=== PATIENT | female | born 1960 | race Caucasian/White ===

== ENCOUNTER 2021-10-24 12:47 | Emergency (ER) | payer OTHER ==
[2021-10-24 13:53] LABS: HEMOGLOBIN 13.2 gm/dl (12.3-15.3); RED BLOOD COUNT 4.38 M/UL (4.00-5.10); WHITE BLOOD COUNT 6.7 K/UL (4.5-11.0)
[2021-10-24 14:12] LABS: BUN/CREATININE RATIO 35 (0-10)
[2021-10-24] MEDS ORDERED: OMNICEF 300 MG300 MG PO (14:53)
== END 2021-10-24 15:20 | disposition home or self-care (01) ==
LOC: ER1 12:47
PROVIDERS: Student in an Organized Health Care Education/Training Program
DX: S30.816A Abrasion of unspecified external genital organs, female, initial encounter (principal); N81.10 Cystocele, unspecified; N39.0 Urinary tract infection, site not specified; I10 Essential (primary) hypertension; X58.XXXA Exposure to other specified factors, initial encounter
CPT/HCPCS: 80048; 81001; 85025; 99283

== ENCOUNTER → 2022-01-06 | Outpatient (CLI) | payer OTHER ==
[~2022-01-06] MED LIST: ATENOLOL50 MG PO; EC-NAPROXEN500 MG PO; ESTRADIOL42.5 GM VG; HYDROCODON-ACE1 EAC2 PO; LASIX TAB 20 MG20 MG PO; LEVOTHYROXINE125 MCG PO; MIRALAX 119 GR119 GM PO; NORVASC10 MG PO; OMNICEF 300 MG300 MG PO; POTASSIUM CHLO10 ME1 PO; VASOTEC20 MG PO; VITAMIN A10000 UNI1 PO; VITAMIN D310 MC4 PO; VITAMIN E90 M1 PO; ZINC50 M1 PO; ZOFRAN 4 MG TAB4 MG PO
[2022-01-06 13:37] LABS: HEMOGLOBIN 13.5 gm/dl (12.3-15.3); RED BLOOD COUNT 4.46 M/UL (4.00-5.10); WHITE BLOOD COUNT 6.6 K/UL (4.5-11.0)
[2022-01-06 13:57] LABS: BUN/CREATININE RATIO 26 (0-10)
== END ==
LOC: OPSV2 12:30
PROVIDERS: Obstetrics & Gynecology
DX: Z01.818 Encounter for other preprocedural examination (principal); N81.10 Cystocele, unspecified
CPT/HCPCS: 36415; 71046; 80053; 81001; 85025; 93005

== ENCOUNTER 2022-01-13 05:22 | Inpatient (IN) | payer OTHER ==
[~2022-01-13] VITALS: Ht 172.7 cm; Wt 99.3 kg
[~2022-01-13 05:22] MED LIST changes: -EC-NAPROXEN500 MG PO; -HYDROCODON-ACE1 EAC2 PO; -MIRALAX 119 GR119 GM PO; -ZOFRAN 4 MG TAB4 MG PO
[2022-01-13] MEDS ORDERED: HYDROCODON-ACE1 EAC2 PO (13:15)
[2022-01-13] MEDS ORDERED: EC-NAPROXEN500 MG PO (13:15)
[2022-01-13] MEDS ORDERED: ZOFRAN 4 MG TAB4 MG PO (13:15)
[2022-01-13] MEDS ORDERED: MIRALAX 119 GR119 GM PO (13:19)
--- NOTE | 2022-01-13 17:20 | NUR ---
b scuds placed when pt arrived to unit
--- NOTE | 2022-01-14 03:47 | NUR ---
Late Entry 01/13/221929 Pt resting in bed, low fowlers, drowsy from anesthesia, a&o x 3. o2 removed, sats 96%. Skin warm & dry, pedal pulses present bilat. skin turgor wnl. adb dressing to lower abd intact. resperations clear, easy & unlabored, i/s use done up tp 500 ml inspired volume, no cough present, he regular and currently 62. 1+ pitting edema to ble, knee high scuds inplace. fc patent, anchored to bedside, draining red tinged urine, secuted to leg with stat lock. vaginal packing in place, no vag bleeding present. bowel sounds hypoactive, pt tolerating ice/sipping 7 up well. # 20 guage ac intact to right wrist with lr infusing at 150 ml per hour, site w/o redness or edema. states she continues to be a little nauseated and the meds have helped her.inst that she wouls not be out of the bed this evening and to call for any needs prn, verbalized unsderstanding. call light w/i reach , nad.
--- NOTE | 2022-01-14 03:47 | NUR ---
resting in bed, call light w/i reach. nad.
--- NOTE | 2022-01-14 04:01 | NUR ---
01/13/22 2330 resting in bed, eating jello, tolerating well, staes that she is feeling better, inst to call for any needs prn. call light w/i reach verb understanding.
--- NOTE | 2022-01-14 04:03 | NUR ---
01/17/22 0200 resting in bed, nad, call light w/i reach
--- NOTE | 2022-01-14 04:05 | NUR ---
late entry 01/13/222102 c/o pain , medicated with 5 mg morphine iv a/o, see MAR.
[2022-01-14 06:32] LABS: RED BLOOD COUNT 3.62 M/UL (4.00-5.10); WHITE BLOOD COUNT 10.7 K/UL (4.5-11.0)
[2022-01-14 06:38] LABS: BUN/CREATININE RATIO 23 (0-10)
--- NOTE | 2022-01-14 07:10 | NUR ---
01/15/00 0630 SATTES SHE SLEPT WELL, OFFERED FOOD, STATES SHE WILL WAIT FOR TRAY. CONT TO SIP ON 7 UP & CRACKERS. IVF DC'D. ADB DRESSING REMOVED, INCISION WELL APPROXIMATED, STERISTRIPS INTACT. VAG PACKING REMOVED,SM AMT DARK BLOOD NOTED ON VAG PACKING. FC REMOVED, URINE WAS THE COLOR OF TEA UPON CATH REMOVAL, INST ON VOIDING IN COLLECTION CONTAINED AND CALLING OUT FOR ASSIST WHEN SHE GETS OOB. VERB UNDERSTANDING.
--- NOTE | 2022-01-14 07:17 | NUR ---
01/14/22 0700 [facility]
[2022-01-18 18:10] LABS: CA OXALATE DIHYDRATE 20 % (.); CALCIUM OXALATE MONOHYDRATE 80 % (.); COLOR Gray (.); SIZE 3x3 mm (.); WEIGHT 286 mg (.)
== END 2022-01-14 14:23 | disposition home or self-care (01) | DRG 747 ==
LOC: OR 05:22 → OB 15:37
PROVIDERS: Internal Medicine; Obstetrics & Gynecology; ADMIT Obstetrics & Gynecology
PROC: 0TH983Z Insertion of Infusion Device into Ureter, Via Natural or Artificial Opening Endoscopic (ICD-10-PCS; 2022-01-13)
PROC: 0TC68ZZ Extirpation of Matter from Right Ureter, Via Natural or Artificial Opening Endoscopic (ICD-10-PCS; 2022-01-13)
PROC: 0WQN4ZZ Repair Female Perineum, Percutaneous Endoscopic Approach (ICD-10-PCS; principal; 2022-01-13 07:30)
PROC: 0T768DZ Dilation of Right Ureter with Intraluminal Device, Via Natural or Artificial Opening Endoscopic (ICD-10-PCS; 2022-01-13 07:30)
PROC: 0USG8ZZ Reposition Vagina, Via Natural or Artificial Opening Endoscopic (ICD-10-PCS; 2022-01-13 07:30)
DX: N99.3 Prolapse of vaginal vault after hysterectomy (principal); N39.46 Mixed incontinence; N81.6 Rectocele; N81.10 Cystocele, unspecified; N36.42 Intrinsic sphincter deficiency (ISD); N81.89 Other female genital prolapse; I10 Essential (primary) hypertension; R30.0 Dysuria; E03.9 Hypothyroidism, unspecified; Z83.3 Family history of diabetes mellitus; Z82.49 Family history of ischemic heart disease and other diseases of the circulatory system; Z80.0 Family history of malignant neoplasm of digestive organs; Z79.899 Other long term (current) drug therapy; Z90.710 Acquired absence of both cervix and uterus; Z90.89 Acquired absence of other organs
CPT/HCPCS: 36415; 74018; 80048; 85025; C1763; C1769; C1771; C2617; J0690; J1100; J1170; J1940; J2001; J2270; J2405; J2550; J2704; J2795; J3010; J7120; Q9967

== ENCOUNTER → 2022-02-23 | Outpatient (CLI) | payer OTHER ==
[~2022-02-23] VITALS: Ht 172.7 cm; Wt 97.5 kg
[~2022-02-23] MED LIST changes: +EC-NAPROXEN500 MG PO; +HYDROCODON-ACE1 EAC2 PO; +MIRALAX 119 GR119 GM PO; +ZOFRAN 4 MG TAB4 MG PO
== END ==
LOC: NM 10:19
DX: Q62.11 Congenital occlusion of ureteropelvic junction (principal)
CPT/HCPCS: 78708; A9562; J1940